=== PATIENT | female | born 1960 | race African-American/Black ===

== ENCOUNTER 2018-01-13 18:33 | Emergency (ER) | payer SELFPAY ==
[~2018-01-13] VITALS: Ht 160 cm; Wt 59.0 kg
[2018-01-13] MEDS ORDERED: NITROGLYCERIN 0.4MG TABLET SL SL PRN (19:45)
[2018-01-13] MEDS ORDERED: ASPIRIN 81MG TABLET PO ONE (19:45)
[2018-01-14 01:20] LABS: BASOPHILS % 0.7 % (0.0-2.0); EOSINOPHILS % 3.7 % (0.0-5.0); HEMATOCRIT. 41.8 % (36.0-48.0); HEMOGLOBIN. 13.7 g/dL (12.0-16.0); LYMPHOCYTES % 50.7 % (20.0-50.0); MEAN CORPUSCULAR HEMOGLOBIN 30.2 pg (28.0-32.0); MEAN CORPUSCULAR VOLUME 91.9 fL (81.0-99.0); MEAN PLATELET VOLUME 7.6 fl (7.4-10.4); MONOCYTES % 5.6 % (2.0-8.0); NEUTROPHILS % 39.3 % (40.0-76.0); PLATELET 302 x1000/uL (130-400); RED BLOOD CELL COUNT 4.55 mill/uL (4.2-5.4); RED CELL DISTRIBUTION WIDTH 13.1 % (11.6-14.6)
[2018-01-14 01:26] LABS: CHLORIDE 110 mEq/L (98-107)
[2018-01-14 01:30] LABS: ETHANOL BLOOD < 10 mg/dL
[2018-01-14 04:05] VITALS: BP 122/76
== END 2018-01-14 04:55 | disposition home or self-care (01) ==
LOC: ER 18:33 → CANBEDREQ 01-14 05:39
DX: R07.9 Chest pain, unspecified (principal); N30.00 Acute cystitis without hematuria
CPT/HCPCS: 36415; 71045; 80053; 83880; 84484; 85025; 93005; 99285; G0482; Z7610

== ENCOUNTER 2018-01-14 22:57 | Emergency (ER) | payer SELFPAY ==
[~2018-01-14] VITALS: Ht 160 cm; Wt 59.0 kg
[2018-01-15] MEDS ORDERED: SODIUM CHLORIDE 0.9% 1,000 ML IV ONE ×2 (08:00→13:00)
[2018-01-15 08:36] LABS: BASOPHILS % 0.5 % (0.0-2.0); EOSINOPHILS % 2.5 % (0.0-5.0); HEMATOCRIT. 38.7 % (36.0-48.0); HEMOGLOBIN. 12.9 g/dL (12.0-16.0); LYMPHOCYTES % 47.2 % (20.0-50.0); MEAN CORPUSCULAR HEMOGLOBIN 30.4 pg (28.0-32.0); MEAN CORPUSCULAR VOLUME 91.2 fL (81.0-99.0); MEAN PLATELET VOLUME 7.5 fl (7.4-10.4); MONOCYTES % 4.9 % (2.0-8.0); NEUTROPHILS % 44.9 % (40.0-76.0); PLATELET 290 x1000/uL (130-400); RED BLOOD CELL COUNT 4.24 mill/uL (4.2-5.4)
[2018-01-15 09:08] LABS: CHLORIDE 112 mEq/L (98-107)
[2018-01-15 11:11] LABS: CLARITY URINE CLEAR (CLEAR); COLOR URINE YELLOW (YELLOW); KETONES URINE NEGATIVE (NEGATIVE); LEUKOCYTE ESTERASE URINE 1+ (NEGATIVE); NITRITE URINE NEGATIVE (NEGATIVE); OCCULT BLOOD URINE 2+ (NEGATIVE); PROTEIN URINE 1+ (NEGATIVE); SPECIFIC GRAVITY URINE 1.026 (1.005-1.030); UROBILINOGEN URINE 0.2 E.U./dL (0.2-1.0)
[2018-01-15] MEDS ORDERED: CEFTRIAXONE 1 G PREMIX 50 ML IV ONE (13:00)
[2018-01-15] MEDS ORDERED: CEPHALEXIN 500MG CAPSULE PO ONE (14:30)
[2018-01-15] MEDS ORDERED: DEXAMETHASONE 4MG/ML 1ML VIAL IV ONE (14:45)
[2018-01-15 20:17] VITALS: BP 128/78
== END 2018-01-15 20:30 | disposition home or self-care (01) ==
LOC: ER 23:48
DX: R53.1 Weakness (principal); R39.15 Urgency of urination; R10.9 Unspecified abdominal pain
CPT/HCPCS: 36415; 51702; 70450; 71045; 72148; 80053; 81003; 84484; 85025; 87077; 87086; 87186; 93005; 96365; 96375; 99285; C1893; J0696; J1100; J7030; Z7610; A4315